=== PATIENT | male | born 1995 | race Caucasian/White ===

== ENCOUNTER 2022-09-17 07:27 | Inpatient (IN) | payer OTHER ==
[~2022-09-17] VITALS: Ht 172.7 cm; Wt 86.6 kg
[2022-09-17 07:33] VITALS: BP 138/80
[2022-09-17] MEDS ORDERED: MORPHINE SULFATE 4 MG/ML SYR IVP ONE (07:45)
[2022-09-17] MEDS ORDERED: NACL 0.9% 1,000 ML IV ONE (07:45)
[2022-09-17 08:14] LABS: BASOPHILS # (AUTO) 0.1 K/uL (0.00-0.22); BASOPHILS % (AUTO) 0.6 % (0.0-2.0); EOSINOPHILS # (AUTO) 0.2 K/uL (0-0.4); EOSINOPHILS % (AUTO) 2.2 % (0.0-4.0); HEMATOCRIT 37.7 % (36-52); HEMOGLOBIN 12.9 g/dL (12.0-18.0); LYMPHOCYTES # (AUTO) 2.9 K/uL (2.0-11.5); LYMPHOCYTES % (AUTO) 30.1 % (20.5-51.1); MEAN CORPUSCULAR HEMOGLOBIN 29 pg (27-31); MEAN CORPUSCULAR HGB CONC 34 g/dL (33-37); MEAN CORPUSCULAR VOLUME 84.1 fL (80-94); MONOCYTES % (AUTO) 10.5 % (1.7-9.3); NEUTROPHILS # (AUTO) 5.4 K/uL (1.8-7.7); NEUTROPHILS % (AUTO) 56.6 % (42.2-75.2); PLATELET COUNT (AUTO) 297 K/uL (140-450); RED BLOOD CELL COUNT(AUTO) 4.49 MIL/uL (4.20-6.10); RED CELL DISTRIBUTION WIDTH 13.5 % (11.6-13.7); WHITE BLOOD COUNT (AUTO) 9.5 K/uL (4.8-10.8)
[2022-09-17 08:42] LABS: ALBUMIN 3.8 g/dL (3.4-5.0); CARBON DIOXIDE 31.9 mmol/L (21-32); CREATININE 0.9 mg/dL (0.6-1.3); POTASSIUM 3.9 mmol/L (3.5-5.1); TOTAL BILIRUBIN 0.3 mg/dL (0.0-1.0)
[2022-09-17 10:35] LABS: APPEARANCE,URINE CLEAR (CLEAR); BILIRUBIN,URINE NEGATIVE (NEGATIVE); BLOOD, URINE NEGATIVE (NEGATIVE); COLOR,URINE YELLOW (YELLOW); LEUKOCYTE ESTERASE ,URINE NEGATIVE (NEGATIVE); NITRITE, URINE NEGATIVE (NEGATIVE); UGLUCOSE NEGATIVE (NEGATIVE)
[2022-09-17] MEDS ORDERED: KETOROLAC 30 MG/ML VIAL IVP ONE (11:15)
--- NOTE | 2022-09-17 12:08 | NUR ---
Covid swab dropped off at lab.
[2022-09-17] MEDS ORDERED: ONDANSETRON 4 MG/2 ML VIAL IVP PRN (12:30)
[2022-09-17] MEDS ORDERED: ZOLPIDEM 10 MG TAB PO PRN (12:30)
[2022-09-17] MEDS ORDERED: ACETAMINOPHEN 325 MG TAB PO PRN (12:30)
[2022-09-17] MEDS ORDERED: POTASSIUM CHLORIDE 10 MEQ TABER PO PRN (12:30)
[2022-09-17] MEDS ORDERED: DOCUSATE SODIUM 100 MG GELCAP PO PRN (12:30)
[2022-09-17] MEDS ORDERED: MAG SULF 2000 MG/WATER PREMIX 50 ML IV PRN (12:30)
[2022-09-17] MEDS ORDERED: PROP20TA29 PO (13:04)
[2022-09-17] MEDS ORDERED: QUET200T4 PO (13:04)
[2022-09-17] MEDS ORDERED: ESTR1TAB19 PO (13:04)
[2022-09-17] MEDS ORDERED: PROG100C4 PO (13:04)
[2022-09-17] MEDS ORDERED: VENL150C2 PO (13:04)
[2022-09-17] MEDS ORDERED: LAM200 PO (13:04)
[2022-09-17] MEDS: NACL 0.9% 1,000 ML IV SCH ×2 (13:14→22:30)
[2022-09-17] MEDS: MORPHINE SULFATE 2 MG/ML SYR IVP PRN ×3 (13:19→21:42)
[2022-09-17 13:45] VITALS: BP 97/67
--- NOTE | 2022-09-17 14:02 | NUR ---
Bedside report given to receiving RN. CHAPIS. Pt has all belongings.
--- NOTE | 2022-09-17 16:46 | NUR ---
PATIENT HAS BEEN SCREENED AND CATEGORIZED LOW NUTRITION RISK. PATIENT WILL BE SEEN WITHIN 7 DAYS OF ADMISSION. 09/24/22 REVIEWED BY TOR[address]
[2022-09-17] MEDS ORDERED: KETOROLAC 30 MG/ML VIAL IVP PRN (19:45)
[2022-09-17 20:00] VITALS: BP 118/82
[2022-09-17] MEDS: LORazepam 2 MG/ML VIAL IVP PRN (22:55)
[2022-09-18] VITALS: BP 117/79
[2022-09-18] MEDS: MORPHINE SULFATE 2 MG/ML SYR IVP PRN ×4 (03:55→20:34)
[2022-09-18 04:00] VITALS: BP 113/85
[2022-09-18] MEDS: LORazepam 2 MG/ML VIAL IVP PRN ×3 (05:47→16:35)
[2022-09-18 06:03] LABS: BASOPHILS % (AUTO) 0.4 % (0.0-2.0); EOSINOPHILS # (AUTO) 0.2 K/uL (0-0.4); EOSINOPHILS % (AUTO) 2.1 % (0.0-4.0); HEMATOCRIT 35.9 % (36-52); HEMOGLOBIN 12.4 g/dL (12.0-18.0); LYMPHOCYTES # (AUTO) 2.9 K/uL (2.0-11.5); LYMPHOCYTES % (AUTO) 31.7 % (20.5-51.1); MEAN CORPUSCULAR HEMOGLOBIN 29 pg (27-31); MEAN CORPUSCULAR HGB CONC 35 g/dL (33-37); MEAN CORPUSCULAR VOLUME 83.4 fL (80-94); MONOCYTES # (AUTO) 0.7 K/uL (0.8-1.0); MONOCYTES % (AUTO) 8.1 % (1.7-9.3); NEUTROPHILS # (AUTO) 5.3 K/uL (1.8-7.7); NEUTROPHILS % (AUTO) 57.7 % (42.2-75.2); PLATELET COUNT (AUTO) 254 K/uL (140-450); RED BLOOD CELL COUNT(AUTO) 4.31 MIL/uL (4.20-6.10); RED CELL DISTRIBUTION WIDTH 13.4 % (11.6-13.7); WHITE BLOOD COUNT (AUTO) 9.2 K/uL (4.8-10.8)
[2022-09-18 06:16] LABS: ANION GAP 10.7 (8-16); CARBON DIOXIDE 27.8 mmol/L (21-32); CREATININE 0.8 mg/dL (0.6-1.3); POTASSIUM 3.5 mmol/L (3.5-5.1)
[2022-09-18 08:00] VITALS: BP 117/72
[2022-09-18] MEDS: NACL 0.9% 1,000 ML IV SCH (08:30)
[2022-09-18 12:00] VITALS: BP 118/78
[2022-09-18 16:00] VITALS: BP 121/81
[2022-09-18] MEDS ORDERED: diazePAM 2 MG TAB PO PRN (19:05)
--- NOTE | 2022-09-18 19:30 | NUR ---
RECEIVED PT IN BED ASLEEP. NO S/SX OF PAIN NOR DISCOMFORT. NO ACUTE RESPIRATORY DISTRESS. BED IN THE LOWEST AND LOCKED POSITION FOR SAFETY, CALL LIGHT WITHIN REACH.
[2022-09-18 20:00] VITALS: BP 110/56
--- NOTE | 2022-09-18 21:35 | NUR ---
ROUNDING DONE. PT IS ASLEEP. NO S/SX OF PAIN NOR DISCOMFORT. CALL LIGHT WITHIN REACH.
[2022-09-19] VITALS: BP 107/63
--- NOTE | 2022-09-19 00:14 | NUR ---
PATIENT IS ASLEEP. BREATHING EVEN AND UNLABORED. CALL LIGHT IN REACH. CALL LIGHT WITHIN REACH.
[2022-09-19] MEDS: MORPHINE SULFATE 2 MG/ML SYR IVP PRN (00:40)
--- NOTE | 2022-09-19 00:58 | NUR ---
PROVIDED APPLE JUICE AND BANANA, PT APPRECIATIVE.
[2022-09-19 02:08] LABS: BARBITURATE, URINE NEGATIVE ng/ml (NEG <=200); BENZODIAZEPINE, URINE POSITIVE ng/mL (NEG <=200); CANNABINOID, URINE POSITIVE ng/mL (NEG <=50); COCAINE, URINE NEGATIVE ng/mL (NEG <=300); OPIATE, URINE POSITIVE ng/mL (NEG <=2000); PHENCYCLIDINE SCREEN,URINE NEGATIVE ng/mL (NEG <=25)
[2022-09-19 05:30] LABS: BASOPHILS # (AUTO) 0.1 K/uL (0.00-0.22); BASOPHILS % (AUTO) 0.5 % (0.0-2.0); EOSINOPHILS # (AUTO) 0.2 K/uL (0-0.4); EOSINOPHILS % (AUTO) 1.4 % (0.0-4.0); HEMATOCRIT 36.9 % (36-52); HEMOGLOBIN 12.7 g/dL (12.0-18.0); LYMPHOCYTES # (AUTO) 2.6 K/uL (2.0-11.5); LYMPHOCYTES % (AUTO) 22.8 % (20.5-51.1); MEAN CORPUSCULAR HEMOGLOBIN 29 pg (27-31); MEAN CORPUSCULAR HGB CONC 34 g/dL (33-37); MEAN CORPUSCULAR VOLUME 82.9 fL (80-94); MONOCYTES # (AUTO) 0.7 K/uL (0.8-1.0); MONOCYTES % (AUTO) 6.4 % (1.7-9.3); NEUTROPHILS # (AUTO) 7.8 K/uL (1.8-7.7); NEUTROPHILS % (AUTO) 68.9 % (42.2-75.2); PLATELET COUNT (AUTO) 277 K/uL (140-450); RED BLOOD CELL COUNT(AUTO) 4.46 MIL/uL (4.20-6.10); RED CELL DISTRIBUTION WIDTH 13.4 % (11.6-13.7); WHITE BLOOD COUNT (AUTO) 11.3 K/uL (4.8-10.8)
[2022-09-19 05:59] LABS: ANION GAP 11.6 (8-16); CARBON DIOXIDE 28.1 mmol/L (21-32); CREATININE 0.7 mg/dL (0.6-1.3); POTASSIUM 3.7 mmol/L (3.5-5.1)
--- NOTE | 2022-09-19 06:24 | NUR ---
PATIENT IS ASLEEP. NO DISTRESS NOTED. ALL NEEDS ATTENDED TO. SAFETY PRECAUTIONS MAINTAINED DURING THE SHIFT, CALL LIGHT REMAINS WITHIN REACH.
--- NOTE | 2022-09-19 07:20 | NUR ---
RECEIVED REPORT FROM PAD TUFTER NURSE, ROLANDO, FOR CONTINUITY OF CARE. PT IN BED AT THIS TIME, SLEEPING. RESPIRATIONS ARE EVEN AND UNLABORED ON ROOM AIR. NO SIGNS OF DISTRESS NOTED. PT IS ALERT AND ORIENTED X4, ABLE TO VERBALIZE NEEDS, ABLE TO FOLLOW COMMANDS. PT IS CONTINENT OF BOWEL AND BLADDER. UTILIZES URINAL AT BEDSIDE. PT IS IV TO LAC, 20G. CALL LIGHT WITHIN REACH. ALL SAFETY MEASURES IN PLACE.
[2022-09-19 08:00] VITALS: BP 121/74
--- NOTE | 2022-09-19 08:00 | NUR ---
Patient's Plan of Care was discussed and reviewed with CONCEPT ARTIST:
[2022-09-19] MEDS ORDERED: PROGESTERONE MICRONIZED PO SCH (09:00)
[2022-09-19] MEDS ORDERED: VENLAFAXINE XR 75 MG CAPER PO SCH (09:00)
[2022-09-19] MEDS ORDERED: estradioL 1 MG TAB PO SCH (09:00)
[2022-09-19] MEDS ORDERED: PROPRANOLOL 20 MG TAB PO SCH (09:00)
[2022-09-19] MEDS ORDERED: VENLAFAXINE HCL 75 MG PO SCH (09:00)
--- NOTE | 2022-09-19 10:20 | NUR ---
PT STATES HE HAS BEEN IN PAIN AND IS ASKING IF HE CAN GET PAIN MEDICATION UPON DISCHARGE. DR CHURCH MADE AWARE.
[2022-09-19] MEDS ORDERED: HYDR-5080 PO (11:28)
[2022-09-19] MEDS ORDERED: IBUP-2213 PO (11:29)
[2022-09-19 11:35] VITALS: BP 121/74
--- NOTE | 2022-09-19 13:25 | NUR ---
WENT OVER DISCHARGE PAPERWORK WITH PT. ANSWERED ALL QUESTIONS. PT SIGNED ALL PAPERWORK. IV REMOVED. IV CATHETER INTACT. PT AMBULATED OFF UNIT. ALL BELONGINGS TAKEN UPON DISCHARGE.
== END 2022-09-19 13:25 | disposition home or self-care (01) | DRG 694 ==
LOC: MED 07:27 → MTU 12:27 → MMU 12:58
PROVIDERS: ADMIT Family Medicine; ATTEND Family Medicine
DX: N20.0 Calculus of kidney (principal); F32.A Depression, unspecified; F41.9 Anxiety disorder, unspecified; Z20.822 Contact with and (suspected) exposure to COVID-19; Z79.899 Other long term (current) drug therapy
CPT/HCPCS: 36415; 80048; 80053; 80305; 81003; 83690; 83735; 85025; 87086; 96374; 96375; 99285; J1885; J2060; J2270; J2405

== ENCOUNTER 2023-02-18 06:45 | Inpatient (IN) | payer OTHER ==
[~2023-02-18] VITALS: Ht 172.7 cm; Wt 90.7 kg
[~2023-02-18 06:45] MED LIST: ESTR1TAB19 PO; IBUP-2213 PO; LAM200 PO; PROG100C4 PO; PROP20TA29 PO; QUET200T4 PO; VENL150C2 PO
[2023-02-18 06:58] VITALS: BP 133/70; PULSE 71; RESP 17; TEMP 98; O2SAT 99
--- NOTE | 2023-02-18 07:02 | NUR ---
TO BED AMBULATORY
[2023-02-18] MEDS ORDERED: KETOROLAC 15 MG/ML VIAL IVP ONE (07:10)
[2023-02-18] MEDS ORDERED: NACL 0.9% 1,000 ML IV ONE (07:10)
--- NOTE | 2023-02-18 07:18 | NUR ---
27 YO M PRESENTS W/LT FLANK PAIN, NAUSEA, VOMITING X 1 DAY. PT STATES HX OF KIDNEY STONES. SAFETY MAINTAINED
[2023-02-18 07:40] LABS: BASOPHILS # (AUTO) 0.1 K/uL (0.00-0.22); BASOPHILS % (AUTO) 0.7 % (0.0-2.0); EOSINOPHILS # (AUTO) 0.1 K/uL (0-0.4); HEMATOCRIT 38.9 % (36-52); HEMOGLOBIN 13.5 g/dL (12.0-18.0); LYMPHOCYTES # (AUTO) 3.6 K/uL (2.0-11.5); LYMPHOCYTES % (AUTO) 26.3 % (20.5-51.1); MEAN CORPUSCULAR HEMOGLOBIN 29 pg (27-31); MEAN CORPUSCULAR HGB CONC 35 g/dL (33-37); MEAN CORPUSCULAR VOLUME 83.3 fL (80-94); MONOCYTES # (AUTO) 1.1 K/uL (0.8-1.0); MONOCYTES % (AUTO) 7.9 % (1.7-9.3); NEUTROPHILS # (AUTO) 8.8 K/uL (1.8-7.7); NEUTROPHILS % (AUTO) 64.1 % (42.2-75.2); PLATELET COUNT (AUTO) 344 K/uL (140-450); RED BLOOD CELL COUNT(AUTO) 4.67 MIL/uL (4.20-6.10); WHITE BLOOD COUNT (AUTO) 13.7 K/uL (4.8-10.8)
[2023-02-18 07:56] LABS: ALBUMIN 3.9 g/dL (3.4-5.0); CREATININE 0.9 mg/dL (0.6-1.3); TOTAL BILIRUBIN 0.4 mg/dL (0.0-1.0)
[2023-02-18] MEDS ORDERED: MORPHINE SULFATE 10 MG/ML VIAL IVP ONE (08:05)
--- NOTE | 2023-02-18 08:27 | NUR ---
PATIENT WENT TO CT.
[2023-02-18] MEDS ORDERED: ONDANSETRON 4 MG/2 ML VIAL IVP ONE (09:05)
[2023-02-18 09:46] VITALS: O2SAT 98
[2023-02-18 09:48] LABS: BILIRUBIN,URINE NEGATIVE (NEGATIVE); BLOOD, URINE 2+ (NEGATIVE); COLOR,URINE YELLOW (YELLOW); LEUKOCYTE ESTERASE ,URINE NEGATIVE (NEGATIVE); NITRITE, URINE NEGATIVE (NEGATIVE); UGLUCOSE NEGATIVE (NEGATIVE)
[2023-02-18 09:58] LABS: APPEARANCE,URINE SLIGHTLY CLOUDY (CLEAR)
[2023-02-18] MEDS ORDERED: HYDROmorphone PFS 2 MG/ML SYR IVP ONE (10:15)
--- NOTE | 2023-02-18 10:22 | NUR ---
PT SWABBED FOR BJ AND WALKED TO LAB
[2023-02-18 12:00] VITALS: PULSE 63
[2023-02-18] MEDS ORDERED: HYDROcodone/APAP 5/325 MG 1 TAB TAB PO PRN (12:15)
[2023-02-18] MEDS ORDERED: cefTRIAXone 1,000 MG VIAL ONE (12:28)
[2023-02-18] MEDS: TAMSULOSIN 0.4 MG CAP PO SCH (12:31)
[2023-02-18] MEDS: HYDROmorphone PFS 2 MG/ML SYR IVP PRN ×2 (12:32→21:11)
[2023-02-18 13:00] VITALS: BP 123/63; PULSE 73; RESP 18; TEMP 97.2; O2SAT 98
--- NOTE | 2023-02-18 13:00 | NUR ---
RECEIVED PT FROM ER. REPORT GIVEN BY YAKELIN JOHNSON. TRANSPORTED VIA WHEELCHAIR. PLACED IN BED COMFORTABLY. ALERT AND ORIENTED X 4. RESP. EVEN AND UNLABORED. ON ROOM AIR. SKIN INTACT. CONTINENT TO BOWEL AND BLADDER. MRSA SWAB COLLECTED. SEND TO LAB. NO C/O PAIN OR DISCOMFORT. CALL LIGHT KEPT WITHIN REACH. WILL CONTINUE TO MONITOR.
--- NOTE | 2023-02-18 13:09 | NUR ---
Patient will be admitted to care of DR GOODWIN. Admited to MED SURG. Will go to [id number]. Belongings list completed. Report to SPEECH PATHOLOGIST.
[2023-02-18 14:32] VITALS: RESP 17; O2SAT 98
--- NOTE | 2023-02-18 15:38 | NUR ---
PATIENT HAS BEEN SCREENED AND CATEGORIZED LOW NUTRITION RISK. PATIENT WILL BE SEEN WITHIN 7 DAYS OF ADMISSION. 02/25/[address]
[2023-02-18] MEDS: KETOROLAC 30 MG/ML VIAL IVP PRN (16:12)
[2023-02-18] MEDS: ONDANSETRON 4 MG/2 ML VIAL IVP PRN ×2 (18:11→23:15)
--- NOTE | 2023-02-18 19:10 | NUR ---
BEDSIDE REPORT GIVEN TO SKIP MINER FOR CONTINUITY OF CARE. REMAINS STABLE.
--- NOTE | 2023-02-18 19:36 | NUR ---
RECEIVED REPORT FROM DAY SHIFT NURSE FOR CONTINUITY OF CARE. PATIENT IS AWAKE, ALERT AND ORIENTED X4. PATIENT PREFERS TO BE IDENTIFIED SHE/HER AND THE NAME "CHATO". PT IS CONTINENT AND AMBULATORY BUT PREFERS NOT TO DUE TO HIS PAIN LEVEL. PATIENT CURRENTLY STATING A PAIN LEVEL OF 8/10 IN LOWER ABDOMEN. STABLE ON ROOM AIR AT THIS TIME. IV SITE LOCATED AT LEFT AC 20 GAUGE, INTACT AND PATENT. NO OPEN WOUNDS, SKIN INTACT. WILL MAKE FREQUENT ROUNDS.
[2023-02-18 20:00] VITALS: BP 114/73; PULSE 73; PULSE 75; RESP 17; RESP 18; TEMP 97.1; O2SAT 96; O2SAT 98
--- NOTE | 2023-02-18 21:11 | NUR ---
PATIENT COMPLAINT OF 8/10 PAIN IN LOWER ABDOMEN. POC DISCUSSED AND DILAUDID 0.5 MG IVP WAS ADMINISTERED BY RN: OSVALDO. WILL REASSESS PAIN LEVEL IN ONE HOUR.
[2023-02-18] MEDS: QUEtiapine FUMARATE 100 MG TAB PO SCH (21:50)
--- NOTE | 2023-02-18 22:49 | NUR ---
Patient's Plan of Care was discussed and reviewed with DIRECTOR OF ROTC: NAGA THOMPSON
--- NOTE | 2023-02-18 23:15 | NUR ---
PATIENT HAVING FEELINGS OF NAUSEA AND REQUESTING ZOFRAN. POC DISCUSSED AND ZOFRAN IVP WAS ADMINISTERED BY RN: OSVALDO, PT TOLERATED WELL. NO OTHER SIGNS OF DISTRESS NOTED, PT STATES NO PAIN, WILL CONTINUE TO MONITOR.
[2023-02-19 04:00] VITALS: BP 85/53; PULSE 68; RESP 18; TEMP 97.4; O2SAT 97
[2023-02-19 05:35] LABS: BASOPHILS % (AUTO) 0.2 % (0.0-2.0); EOSINOPHILS # (AUTO) 0.1 K/uL (0-0.4); HEMOGLOBIN 11.1 g/dL (12.0-18.0); LYMPHOCYTES # (AUTO) 3.2 K/uL (2.0-11.5); MEAN CORPUSCULAR HEMOGLOBIN 29 pg (27-31); MEAN CORPUSCULAR HGB CONC 35 g/dL (33-37); MEAN CORPUSCULAR VOLUME 83.6 fL (80-94); MONOCYTES # (AUTO) 1.2 K/uL (0.8-1.0); MONOCYTES % (AUTO) 10.6 % (1.7-9.3); NEUTROPHILS # (AUTO) 7.2 K/uL (1.8-7.7); NEUTROPHILS % (AUTO) 61.2 % (42.2-75.2); PLATELET COUNT (AUTO) 236 K/uL (140-450); RED BLOOD CELL COUNT(AUTO) 3.83 MIL/uL (4.20-6.10); RED CELL DISTRIBUTION WIDTH 13.7 % (11.6-13.7); WHITE BLOOD COUNT (AUTO) 11.8 K/uL (4.8-10.8)
--- NOTE | 2023-02-19 07:21 | NUR ---
RECEIVED PATIENT FROM PM NURSE FOR CONTINUATION OF CARE
[2023-02-19 07:32] LABS: ANION GAP 12.7 (8-16); CARBON DIOXIDE 26.9 mmol/L (21-32); CREATININE 1.2 mg/dL (0.6-1.3); POTASSIUM 3.6 mmol/L (3.5-5.1)
[2023-02-19 08:00] VITALS: PULSE 98; RESP 16; O2SAT 95
[2023-02-19] MEDS ORDERED: ENOXAPARIN 40 MG/0.4 ML SYR SUBQ SCH (09:00)
[2023-02-19] MEDS: PROPRANOLOL 20 MG TAB PO SCH (09:00)
[2023-02-19] MEDS: TAMSULOSIN 0.4 MG CAP PO SCH (09:00)
[2023-02-19] MEDS: HYDROmorphone PFS 2 MG/ML SYR IVP PRN ×3 (09:20→20:13)
--- NOTE | 2023-02-19 11:17 | NUR ---
DC PLANN[age] YRS OLD MALE PATIENT WAS ADMITTED FROM HOME WITH A DX OF CHEST PAIN. PATIENT HAS A HX OF BIPOLAR AND KIDNEY STONE . CT ABD SHOWED KIDNEY STONE WITH NO EVIDENCE OF OBSTRUCTION. ADMINISTERED IVF, IV ABX ROCEPHIN AND PAIN MEDS AND CONTINUED HOME MEDS. CONSULTED WITH UROLOGIST. DC PLAN TO GO HOME WHEN STABLE. CM TO FOLLOW
[2023-02-19] MEDS ORDERED: CEPH-588 PO (11:53)
[2023-02-19] MEDS ORDERED: OXYC5TAB4 PO (11:53)
[2023-02-19] MEDS ORDERED: IBUP-2213 PO (11:53)
[2023-02-19] MEDS ORDERED: TAMS0.4C96 PO (11:56)
[2023-02-19] MEDS: KETOROLAC 30 MG/ML VIAL IVP PRN (12:03)
--- NOTE | 2023-02-19 16:33 | NUR ---
NOTIFIED DR. GOODWIN THAT PATIENT REFUSED TO GO HOME, HE DOESN'T FEEL GOOD. WILL CONTINUE TO MONITOR.
[2023-02-19] MEDS: ONDANSETRON 4 MG/2 ML VIAL IVP PRN (18:05)
--- NOTE | 2023-02-19 19:30 | NUR ---
endorsed patient to pm nurse for continuation of care
[2023-02-19 20:00] VITALS: BP 112/66; PULSE 76; RESP 20; TEMP 98; O2SAT 98
[2023-02-19] MEDS: QUEtiapine FUMARATE 100 MG TAB PO SCH (20:12)
[2023-02-20] MEDS: HYDROmorphone PFS 2 MG/ML SYR IVP PRN (00:32)
--- NOTE | 2023-02-20 01:00 | NUR ---
CONTINUE CARE FROM DAY SHIFT NURSE. PT IS STABLE AND ABLE TO VERBALIZED NEEDS. NO CHANGE OF CONDITION AT THIS TIME.
--- NOTE | 2023-02-20 03:00 | NUR ---
PT IS SLEEPING WELL, NO SOB OR DISTRESS.
[2023-02-20 05:00] VITALS: BP 113/63; PULSE 66; RESP 18; TEMP 97.2
[2023-02-20 05:30] LABS: BASOPHILS % (AUTO) 0.4 % (0.0-2.0); EOSINOPHILS # (AUTO) 0.2 K/uL (0-0.4); EOSINOPHILS % (AUTO) 1.7 % (0.0-4.0); HEMATOCRIT 30.3 % (36-52); HEMOGLOBIN 10.9 g/dL (12.0-18.0); LYMPHOCYTES # (AUTO) 2.7 K/uL (2.0-11.5); LYMPHOCYTES % (AUTO) 22.8 % (20.5-51.1); MEAN CORPUSCULAR HEMOGLOBIN 30 pg (27-31); MEAN CORPUSCULAR HGB CONC 36 g/dL (33-37); MEAN CORPUSCULAR VOLUME 82.1 fL (80-94); MONOCYTES # (AUTO) 1.1 K/uL (0.8-1.0); MONOCYTES % (AUTO) 9.1 % (1.7-9.3); NEUTROPHILS # (AUTO) 7.7 K/uL (1.8-7.7); PLATELET COUNT (AUTO) 219 K/uL (140-450); RED BLOOD CELL COUNT(AUTO) 3.69 MIL/uL (4.20-6.10); RED CELL DISTRIBUTION WIDTH 13.6 % (11.6-13.7); WHITE BLOOD COUNT (AUTO) 11.6 K/uL (4.8-10.8)
[2023-02-20 05:53] LABS: ANION GAP 9.9 (8-16); CARBON DIOXIDE 28.8 mmol/L (21-32); POTASSIUM 3.7 mmol/L (3.5-5.1)
--- NOTE | 2023-02-20 06:50 | NUR ---
PT COOPERATIVE WITH VITAL SIGNS CHECKED.
--- NOTE | 2023-02-20 06:50 | NUR ---
PT REPORTED SEVERE PAIN BEFORE DC. INFORMED MD. PROVIDED ORDERS FOR CT SCAN AND AQUATIC FACILITY MANAGER, ORDERS MET. PT NOW RESTING IN BED. WILL CONTINUE WITH CARE. Addendum: 02/20/23 at 1948 by SHAY CHAMBERS RN [id number] TIME ENTRY, NOT [id number]
--- NOTE | 2023-02-20 07:00 | NUR ---
RECEIVED BEDSIDE REPORT FROM NIGHTSHIFT NURSE. PT STABLE, RESTING IN BED. CALL LIGHT WITHIN REACH. NO NEEDS TO BE MET AT THIS TIME.
--- NOTE | 2023-02-20 07:00 | NUR ---
PT IS ON STABLE CONDITION. SAFETY MEASURES ARE IN PLACE. WILL ENDORSE TO DAY SHIFT NURSE FOR CONTINUITY OF CARE.
[2023-02-20 08:00] VITALS: PULSE 83; RESP 16; O2SAT 97
[2023-02-20] MEDS ORDERED: CYCLOBENZAPRINE 10 MG TAB PO PRN (08:45)
[2023-02-20] MEDS ORDERED: IBUPROFEN 800 MG TAB PO PRN (08:50)
[2023-02-20] MEDS: PROPRANOLOL 20 MG TAB PO SCH (09:32)
[2023-02-20] MEDS: TAMSULOSIN 0.4 MG CAP PO SCH (09:33)
[2023-02-20] MEDS: GABAPENTIN 300 MG CAP PO SCH ×3 (09:33→18:18)
[2023-02-20] MEDS: LIDOCAINE 5% 1 EA PATCH TP SCH (09:38)
[2023-02-20] MEDS ORDERED: GABA300C55 PO (12:11)
[2023-02-20] MEDS ORDERED: CYCL-657 PO (12:11)
[2023-02-20 17:46] VITALS: BP 108/66; PULSE 83; RESP 16; TEMP 97.5
[2023-02-20] MEDS: ACETAMINOPHEN 325 MG TAB PO PRN (18:17)
--- NOTE | 2023-02-20 19:46 | NUR ---
ENDORSED TO NIGHTSHIFT NURSE FOR CONTINUITY OF CARE. PT STABLE, RESTING IN BED. CALL LIGHT WITHIN REACH.
[2023-02-20 20:00] VITALS: BP 97/58; PULSE 83; RESP 16; RESP 17; TEMP 96; O2SAT 97
--- NOTE | 2023-02-20 20:35 | NUR ---
PT LEFT TO RADIOLOGY FOR CT SCAN.
--- NOTE | 2023-02-20 20:50 | NUR ---
PT RETURNED FROM RADIOLOGY
[2023-02-20] MEDS: QUEtiapine FUMARATE 100 MG TAB PO SCH (22:53)
[2023-02-21] MEDS: ACETAMINOPHEN 325 MG TAB PO PRN (00:51)
[2023-02-21 05:00] VITALS: BP 90/53; RESP 18; TEMP 97.2
--- NOTE | 2023-02-21 07:07 | NUR ---
receive the patinet from the film processing shift supervisor rn in [id number] with admitting diagnosis of kidney stones . will continue to monitor
[2023-02-21 08:12] VITALS: PULSE 78; RESP 20; O2SAT 98
[2023-02-21] MEDS: GABAPENTIN 300 MG CAP PO SCH ×3 (08:44→17:00)
[2023-02-21] MEDS: PROPRANOLOL 20 MG TAB PO SCH (08:44)
[2023-02-21] MEDS: TAMSULOSIN 0.4 MG CAP PO SCH (08:44)
[2023-02-21] MEDS: LIDOCAINE 5% 1 EA PATCH TP SCH (08:45)
--- NOTE | 2023-02-21 12:15 | NUR ---
computed tomography of the abdomen/pelvis with contrast done . tolerated the procedure
--- NOTE | 2023-02-21 14:51 | NUR ---
md was made aware of the result of ct of abdomen/pelvis with cotrast
--- NOTE | 2023-02-21 15:25 | NUR ---
md lorenzana will call Md jenn zheng urologist . gave him urologist contact number
[2023-02-21] MEDS ORDERED: HYDROcodone/APAP 5/325 MG 1 TAB TAB PO PRN (16:05)
--- NOTE | 2023-02-21 19:09 | NUR ---
will endorse to hourly shift rn for continuity of care
--- NOTE | 2023-02-21 19:30 | NUR ---
RECEIVED PT IN BED, AWAKE,ALERT AND ORIENTED. X4. DENIES PAIN AT THIS TIME. NO ACUTE RESPIRATORY DISTRESS NOTED. SKIN WARM AND DRY TO TOUCH. SAFETY PRECAUTIONS IN PLACE, CALL LIGHT IN REACH, ENCOURAGED TO CALL IF ASSISTANCE IS NEEDED, PT VERBALLY ACKNOWLEDGED.
[2023-02-21 20:00] VITALS: BP 113/65; PULSE 66; RESP 16; TEMP 98.2; O2SAT 97
[2023-02-21] MEDS: QUEtiapine FUMARATE 100 MG TAB PO SCH (20:26)
--- NOTE | 2023-02-22 00:12 | NUR ---
PATIENT IS AWAKE, USING HIS CELLPHONE. NO DISTRESS NOTED. CALL LIGHT WITHIN REACH.
[2023-02-22 04:00] VITALS: BP 102/60; PULSE 67; RESP 16; TEMP 98
[2023-02-22 08:00] VITALS: PULSE 57; RESP 18; O2SAT 97
[2023-02-22] MEDS: PROPRANOLOL 20 MG TAB PO SCH (09:00)
[2023-02-22] MEDS: LIDOCAINE 5% 1 EA PATCH TP SCH ×2 (09:00→09:44)
[2023-02-22] MEDS: GABAPENTIN 300 MG CAP PO SCH ×3 (09:45→17:00)
[2023-02-22] MEDS: TAMSULOSIN 0.4 MG CAP PO SCH (09:46)
[2023-02-22] MEDS: ACETAMINOPHEN 325 MG TAB PO PRN (09:46)
[2023-02-22 15:19] VITALS: O2SAT 95
--- NOTE | 2023-02-22 18:00 | NUR ---
PT DC'D. EDUCATION PROVIDED. PT VERBALIZE UNDERSTANDING. IV REMOVED, ID BAND REMOVED. PT LEFT UNIT VIA WHEELCHAIR AND UBER. STABLE UPON LEAVING, NO SIGNS OF DISTRESS.
== END 2023-02-22 18:00 | disposition home or self-care (01) | DRG 872 ==
LOC: MED 06:45 → MMU 12:15 → MTU 12:51
PROVIDERS: ADMIT Internal Medicine; ATTEND Internal Medicine
DX: A41.9 Sepsis, unspecified organism (principal); N39.0 Urinary tract infection, site not specified; N20.0 Calculus of kidney; F31.9 Bipolar disorder, unspecified; Z20.822 Contact with and (suspected) exposure to COVID-19
CPT/HCPCS: 36415; 74150; 80048; 80053; 81001; 83735; 85025; 87040; 87081; 96361; 96374; 96375; 99285; J0696; J1170; J1650; J1885; J2270; J2405; J7060; Q9967